=== PATIENT | male | born 1995 | race American Indian/Alaskan Native ===

== ENCOUNTER 2019-08-28 19:33 | Emergency (ER) | payer SELFPAY ==
[2019-08-28 21:37] LABS: Basophils # (Auto) 0.1 K/mm3 (0.0-0.1); Basophils % (Auto) 1.1 % (0.0-1.8); Eosinophils # (Auto) 0.7 K/mm3 (0.0-0.4); Eosinophils % (Auto) 5.4 % (0.0-4.3); Hematocrit 40.4 % (35.5-45.6); Hemoglobin 13.9 gm/dl (11.8-15.2); Lymphocytes # (Auto) 4.4 K/mm3 (1.2-5.4); Lymphocytes % (Auto) 36.5 % (13.4-35.0); Mean Corpuscular HGB Conc 34 % (32-34); Mean Corpuscular Volume 76 fl (84-94); Monocytes # (Auto) 0.7 K/mm3 (0.0-0.8); Monocytes % (Auto) 5.9 % (0.0-7.3); Platelet Count 124 K/mm3 (140-440); Red Blood Count 5.32 M/mm3 (3.65-5.03)
[2019-08-28 21:38] LABS: Red Cell Distribution Width 21.7 % (13.2-15.2)
[2019-08-28 21:43] LABS: BUN/Creatinine Ratio 11; Blood Urea Nitrogen 8 mg/dL (9-20); Calcium 9.7 mg/dL (8.4-10.2); Hemolysis Index 50
[2019-08-29 02:34] VITALS: BP 131/81
== END 2019-08-29 01:50 | disposition left against medical advice (07) ==
LOC: ED 19:33
DX: D57.00 Hb-SS disease with crisis, unspecified (principal); Z53.21 Procedure and treatment not carried out due to patient leaving prior to being seen by health care provider
CPT/HCPCS: 36415; 80048; 85025; 85045

== ENCOUNTER 2020-08-10 20:51 | Emergency (ER) | payer SELFPAY ==
[2020-08-10 21:44] VITALS: BP 114/61
[2020-08-10] MEDS ORDERED: MECLIZINE 25 MG TAB PO ONE (22:36)
[2020-08-10] MEDS ORDERED: SODIUM CHLORIDE 0.9% 1000 ML 1,000 ML IV ONE (22:36)
--- NOTE | 2020-08-10 22:42 | Emergency Department Report ---
ED General Adult HPI - General Chief complaint: Dizziness Stated complaint: DIZZY Time Seen by Provider: 08/10/20 22:30 Source: patient Mode of arrival: Ambulatory Limitations: No Limitations - History of Present Illness Initial comments: 25-year-old male patient with history of sickle cell disease presents to emergency department with complaints of dizziness and shortness of breath starting 4 days ago. Patient states the dizziness was more severe at onset, but today his shortness of breath has been more bothersome than the dizziness. Patient states the dizziness is intermittent, without identifiable exacerbating or relieving factors. States the dizziness feels like he is off balance. No recent fall, trauma, or injury. Patient states he is compliant with his sickle cell disease medication regimen however he is unsure of his baseline hemoglobin. Additionally, patient reports diminished appetite over the last few days. No known sick contacts. No drug or alcohol use reported. Denies headache, neck stiffness, seizure, syncope, vomiting, diarrhea, chest pain, cough, wheezing, back pain. Denies all other complaints at this time. - Related Data Allergies Allergy/AdvReac Type Severity Reaction Status Date / Time No Known Allergies Allergy Unverified 08/28/19 20:50 ED Review of Systems ROS: Stated complaint: DIZZY,ABD PAINS Other details as noted in HPI Other: GENERAL: Positive for decreased appetite. ENT: Negative for ear pain, difficulty hearing, sore throat, nasal congestion, epistaxis. CARDIOVASCULAR: Negative for chest pain, palpitations, lower extremity swelling. PULMONARY: Positive for shortness of breath. GASTROINTESTINAL: Negative for nausea, vomiting, diarrhea, constipation. MUSCULOSKELETAL: Negative for joint pain, joint swelling, myalgias, back pain, neck pain. NEUROLOGICAL: Positive for dizziness INTEGUMENTARY: Negative for erythema, rash, diaphoresis, laceration, ecchymosis. HEMATOLOGICAL: Negative for hemoptysis, hematemesis, hematochezia, hematuria. PSYCHIATRIC: Negative for hallucinations, suicidal ideation, homicidal ideation, anxiety, depression. ED Past Medical Hx - Past Medical History Previous Medical History?: No Hx Sickle Cell Disease: Yes - Surgical History Past Surgical History?: No - Social History Smoking Status: Never Smoker ED Physical Exam - General Limitations: No Limitations - Other Other exam information: General: Awake and alert. No acute distress. Head: Atraumatic, normocephalic. Eyes: EOMI. Pupils are equal and round, reactive to light, no nystagmus. Normal sclera and conjunctiva. ENT: Oral mucosa is moist. Normal pharyngeal exam. Neck: Supple. No lymphadenopathy. Pulmonary: No respiratory distress. Clear to auscultation bilaterally. Cardiac: Regular rate and rhythm. Pulses are palpable and equal bilaterally. No lower extremity cyanosis or edema. Skin: Warm and dry. No rashes. Abdomen: Soft, non-tender, non-protuberant. No guarding, rigidity, or rebound. Bowel sounds are normal. No organomegaly or masses noted. Back: Normal alignment. No CVA tenderness. Extremities: Symmetrical. Full range of motion intact. Neurological: Alert and oriented, appropriately interactive, no focal deficits. Psych: Cooperative. Appropriate mood and affect. Speech is evenly metered. Thoughts are logically construed. ED Course Vital Signs 08/10/20 21:42 Temperature 98.5 F Pulse Rate 69 Respiratory 18 Rate Blood Pressure 114/61 O2 Sat by Pulse 100 Oximetry ED Medical Decision Making - Lab Data Result diagrams: 08/10/20 22:51 08/10/20 22:51 - EKG Data 08/11/20 01:20 EKG shows normal sinus rhythm with a ventricular rate of 64 bpm. Normal axis. Normal HI interval. Normal QT interval. Good R wave progression. No ST segment changes. Over read by attending emergency physician, who agrees with this interpretation. - Medical Decision Making Differential diagnosis including but not limited to: vaso-occlusive crisis, dehydration, electrolyte abnormality, hypoglycemia, anemia, toxic ingestion, peripheral vertigo, cardiac arrhythmia On reevaluation, patient is stable and symptoms have improved after Meclizine and IV fluids. EKG without acute injury pattern. Labs suggestive of mild dehydration. No evidence of sickle cell crisis/acute chest syndrome. Chest x- ray is negative. Blood alcohol level and urine drug screen unremarkable. Orthostatic vital signs are unremarkable. He is ambulatory without assistance. Repeat neurological exam is nonfocal. No clinical indication for further diagnostic work-up on an emergent basis at this time. Patient will be referred to primary care provider for close outpatient follow-up. 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 Patient expressed understanding and is agreeable to plan of care. Strict return precautions provided. Repeat exam is unremarkable and benign. History, exam, diagnostic testing, and current condition do not suggest worrisome pathology to warrant further testing, continued ED treatment, admission, or surgical evaluation at this point. Given the low probability of a significant medical illness, it would be more likely to result in harm than benefit to perform further testing at this stage. Discussed findings, presumptive diagnosis, need for follow-up and specific signs/symptoms that should prompt immediate return to the emergency department. Instructions were explained in detail to the patient in addition to giving written discharge information. Patient expressed understanding and was given the opportunity to ask questions, all of which were satisfactorily answered prior to discharge home. Critical care attestation.: If time is entered above; I have spent that time in minutes in the direct care of this critically ill patient, excluding procedure time. ED Disposition Clinical Impression: Dehydration Disposition: DC-01 TO HOME OR SELFCARE Is pt being admited?: No Does the pt Need Aspirin: No Condition: Stable Instructions: Dehydration, Adult Additional Instructions: Rest. Drink plenty fluids. Gradually advance physical activity slowly as tolerated. Follow-up with primary care provider this week. Call tomorrow to schedule an appointment. See referral information below. Return to the emergency department immediately for new or worsening symptoms. Specifically, return to the emergency department immediately for headache, vision changes, seizure, loss of consciousness, vomiting, diarrhea, chest pain, or any other concerns. Referrals: MAREN HENNESSY MD [Staff Physician] - 3-5 Days [facility] [Outside] - 3-5 Days [facility] [Outside] - 3-[address] [facility] [Outside] - 3-5 Days [facility] [Provider Group] - 3-5 Days
[2020-08-10 23:14] LABS: Hematocrit 41.3 % (35.5-45.6); Hemoglobin 14.7 gm/dl (11.8-15.2); Mean Corpuscular HGB Conc 36 % (32-34); Mean Corpuscular Volume 79 fl (84-94); Platelet Count 176 K/mm3 (140-440); Red Blood Count 5.21 M/mm3 (3.65-5.03); Red Cell Distribution Width 17.9 % (13.2-15.2)
[2020-08-10 23:39] LABS: Alanine Aminotransferase 11 units/L (7-56); Albumin 5.1 g/dL (3.9-5); BUN/Creatinine Ratio 13; Blood Urea Nitrogen 10 mg/dL (9-20); Calcium 9.5 mg/dL (8.4-10.2); Hemolysis Index 74
--- NOTE | 2020-08-11 00:39 | XRay Report ---
XR chest routine 2V INDICATION / CLINICAL INFORMATION: SOB/dizziness -- hx sickle cell COMPARISON: None available. FINDINGS: SUPPORT DEVICES: None. HEART / MEDIASTINUM: No significant abnormality. LUNGS / PLEURA: Lungs are clear. Costophrenic sulci are sharp. No pneumothorax. ADDITIONAL FINDINGS: No significant additional findings. IMPRESSION: 1. No acute findings. Signer Name: Jason Zhu MD Signed: 08/11/2020 12:34 AM Workstation Name: [id number]
[2020-08-11 01:03] LABS: Amphetamine Screen,Urine Negative; Benzodiazepines Screen,Urine Negative; Cannabinoid Screen,Urine Negative; Cocaine Screen,Urine Negative; Methadone Screen,Urine Negative; Opiate Screen,Urine Negative
[2020-08-11 01:08] LABS: Giant Platelets Rare; RBC Morphology Normal; Total Cells Counted 100
--- NOTE | 2020-08-12 17:51 | Electrocardiograph Report ---
[facility] Test Date: 2020-08-11 Test Time: 01:12:32 Pat Name: JOMAR UNDERWOOD Department: Room: Gender: M [employer]: GERARD : 1995 Requested By: BEATRIZ RAMIREZ Order Number: [id number] Reading MD: Chris Pantoja Measurements Intervals [place] Rate: 64 P: -14 KS: 138 QRS: 62 QRSD: 80 T: 45 QT: 385 QTc: 398 Interpretive Statements Sinus rhythm Borderline ST elevation, anterior leads No previous ECG available for comparison Electronically Signed On 08-12-2020 17:51:10 EDT by Chris Pantoja
== END 2020-08-11 01:40 | disposition home or self-care (01) ==
LOC: ED 20:51
DX: E86.0 Dehydration (principal); Z79.899 Other long term (current) drug therapy
CPT/HCPCS: 36415; 71046; 80053; 80307; 83735; 84484; 85007; 85025; 85045; 93005; 96360; 99284; J7030; 80320; G0480

== ENCOUNTER 2020-11-02 17:48 | Emergency (ER) | payer SELFPAY ==
[2020-11-02] MEDS ORDERED: ONDANSETRON 4 MG/2 ML INJ IM ONE (19:29)
[2020-11-02] MEDS ORDERED: MORPHINE 4 MG/1 ML INJ IM ONE (19:29)
[2020-11-02] MEDS ORDERED: IBUPROFEN 800 MG TAB PO ONE (19:30)
[2020-11-02 20:09] LABS: Blood Urea Nitrogen 10 mg/dL (9-20); Calcium 9.4 mg/dL (8.4-10.2); Hemolysis Index 30
--- NOTE | 2020-11-02 20:13 | Emergency Department Report ---
HPI - General Chief Complaint: Sickle Cell Crisis Time Seen by Provider: 11/02/20 19:20 - HPI HPI: MSE 6 The patient is a 25-year-old male present with a chief complaint of sickle cell pain crisis. Patient states he developed pain in his lower back and buttocks yesterday consistent with a sickle cell disease. Patient denies any preceding trauma. Patient denies history of fever. Patient currently gives his pain a score of 10/10 ED Past Medical Hx - Past Medical History Hx Sickle Cell Disease: Yes ([place] ) - Surgical History Past Surgical History?: No - Family History Family history: no significant - Social History Smoking Status: Never Smoker Substance Use Type: None - Medications Home Medications: Home Medications Medication Instructions Recorded Confirmed Last Taken Type HYDROcodone/APAP 5-325 [Irene 1 - 2 each PO Q6HR PRN #14 tablet 11/02/20 Unknown Rx 5/325] Ibuprofen [Motrin 800 MG tab] 800 mg PO Q8HR PRN #20 tablet 11/02/20 Unknown Rx ED Review of Systems ROS: Stated complaint: SICKLE CELL Other details as noted in HPI Constitutional: denies: fever Eyes: denies: eye pain ENT: denies: throat pain Respiratory: no symptoms reported Cardiovascular: denies: chest pain Endocrine: no symptoms reported Gastrointestinal: denies: abdominal pain Genitourinary: denies: testicular pain Musculoskeletal: back pain Neurological: denies: headache Hematological/Lymphatic: other (Sickle cell pain crisis) Physical Exam - Physical Exam Vital Signs: Vital Signs 11/02/20 17:59 Temperature 98.7 F Pulse Rate 54 L Respiratory 16 Rate Blood Pressure 116/54 [Left] Physical Exam: GENERAL: The patient is well-developed well-nourished male lying prone on stretcher not appearing to be in acute distress. [] HEENT: Normocephalic. Atraumatic. Extraocular motions are intact. Patient has moist mucous membranes. NECK: Supple. Trachea midline CHEST/LUNGS: Clear to auscultation. There is no respiratory distress noted. HEART/CARDIOVASCULAR: Regular. There is no tachycardia. There is no gallop rub or murmur. ABDOMEN: Abdomen is soft, nontender. Patient has normal bowel sounds. There is no abdominal distention. SKIN: There is no rash. There is no edema. There is no diaphoresis. NEURO: The patient is awake, alert, and oriented. The patient is cooperative. The patient has no focal neurologic deficits. The patient has normal speech MUSCULOSKELETAL: There is no evidence of acute injury. ED Course Vital Signs 11/02/20 17:59 Temperature 98.7 F Pulse Rate 54 L Respiratory 16 Rate Blood Pressure 116/54 [Left] - Reevaluation(s) Reevaluation #1: 11/02/20 22:17 Patient states he feels improved ED Medical Decision Making - Lab Data Result diagrams: 11/02/20 19:33 11/02/20 19:33 Laboratory Tests 11/02/20 11/02/20 19:33 19:33 WBC 7.2 RBC 4.95 Hgb 13.6 Hct 39.4 MCV 80 L MCH 28 MCHC 35 H RDW 18.0 H Plt Count 212 Lymph % (Auto) 43.9 H [place] % (Auto) 6.7 Eos % (Auto) 7.5 H Baso % (Auto) 1.3 Lymph # (Auto) 3.2 [place] # (Auto) 0.5 Eos # (Auto) 0.5 H Baso # (Auto) 0.1 Seg Neutrophils % 40.6 Seg Neutrophils # 2.9 Percent Retic 2.94 H Sickle Cell Screen Positive Sodium 139 Potassium 4.0 Chloride 106.0 Carbon Dioxide 23 Anion Gap 14 BUN 10 Creatinine 0.7 L Estimated GFR > 60 BUN/Creatinine Ratio 14 Glucose 94 Calcium 9.4 - Differential Diagnosis Sickle cell pain crisis Critical care attestation.: If time is entered above; I have spent that time in minutes in the direct care of this critically ill patient, excluding procedure time. ED Disposition Clinical Impression: Sickle cell pain crisis Disposition: 01 HOME / SELF CARE / HOMELESS Is pt being admited?: No Does the pt Need Aspirin: No Condition: Stable Additional Instructions: Return to the emergency department should you develop worsening symptoms, inability to tolerate food or liquids, high fever or any other concerns Prescriptions: Ibuprofen [Motrin 800 MG tab] 800 mg PO Q8HR PRN #20 tablet PRN Reason: Pain , Severe (7-10) HYDROcodone/APAP 5-325 [Irene 5/325] 1 - 2 each PO Q6HR PRN #14 tablet PRN Reason: Pain Referrals: RENETTA HODGES DO [Staff Physician] - 3-5 Days (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 Please follow-up with him for further evaluation) Time of Disposition: 22:19
[2020-11-02 20:15] LABS: Basophils # (Auto) 0.1 K/mm3 (0.0-0.1); Basophils % (Auto) 1.3 % (0.0-1.8); Eosinophils # (Auto) 0.5 K/mm3 (0.0-0.4); Eosinophils % (Auto) 7.5 % (0.0-4.3); Hematocrit 39.4 % (35.5-45.6); Hemoglobin 13.6 gm/dl (11.8-15.2); Lymphocytes # (Auto) 3.2 K/mm3 (1.2-5.4); Lymphocytes % (Auto) 43.9 % (13.4-35.0); Mean Corpuscular HGB Conc 35 % (32-34); Mean Corpuscular Volume 80 fl (84-94); Monocytes # (Auto) 0.5 K/mm3 (0.0-0.8); Monocytes % (Auto) 6.7 % (0.0-7.3); Platelet Count 212 K/mm3 (140-440); Red Blood Count 4.95 M/mm3 (3.65-5.03)
[2020-11-02 20:17] LABS: BUN/Creatinine Ratio 14
[2020-11-02] MEDS ORDERED: HYDROmorphone 1 MG/1 ML INJ IM ONE (20:44)
[2020-11-02 22:52] VITALS: BP 115/58
== END 2020-11-02 23:16 | disposition home or self-care (01) ==
LOC: ED 17:48
DX: D57.00 Hb-SS disease with crisis, unspecified (principal); M54.5 Low back pain; Z79.899 Other long term (current) drug therapy; Z91.018 Allergy to other foods
CPT/HCPCS: 36415; 80048; 85025; 85045; 85660; 96372; 99283; J1170; J2270; J2405